=== PATIENT | female | born 1995 | race Caucasian/White ===

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

== ENCOUNTER 2019-08-04 21:04 | Emergency (ER) | payer OTHER ==
[~2019-08-04] VITALS: Ht 170.2 cm; Wt 69.4 kg
[2019-08-04 21:09] VITALS: Ht 170.2 cm; Wt 69.4 kg
[2019-08-05 00:30] VITALS: BP 102/72
== END 2019-08-05 00:30 | disposition home or self-care (01) ==
LOC: ED 21:04
DX: B34.9 Viral infection, unspecified (principal); J10.1 Influenza due to other identified influenza virus with other respiratory manifestations; J45.909 Unspecified asthma, uncomplicated; K21.9 Gastro-esophageal reflux disease without esophagitis; Z88.2 Allergy status to sulfonamides; Z91.041 Radiographic dye allergy status
CPT/HCPCS: 87804; J1100; J1885